=== PATIENT | female | born 1990 | race Caucasian/White ===

== ENCOUNTER 2019-02-11 14:36 | Emergency (ER) | payer MEDICAID ==
[2019-02-11] MEDS ORDERED: Metoprolol Succinate 25 MG Tab.ER PO ONE (14:57)
[2019-02-11] MEDS ORDERED: Venlafaxine 37.5 MG Cap.ER PO ONE (14:58)
[2019-02-11] MEDS ORDERED: Pregabalin 75 MG Cap PO ONE (14:59)
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
== END 2019-02-11 15:38 | disposition home or self-care (01) ==
LOC: DL.ED 14:36
DX: F41.9 Anxiety disorder, unspecified (principal); I10 Essential (primary) hypertension; E66.9 Obesity, unspecified; Z76.0 Encounter for issue of repeat prescription; Z68.42 Body mass index [BMI] 45.0-49.9, adult
CPT/HCPCS: 99281; A9270